=== PATIENT | male | born 1960 | race Caucasian/White ===

== ENCOUNTER 2017-10-08 08:55 | Observation (INO) | payer OTHER ==
[~2017-10-08] VITALS: Ht 193 cm; Wt 135.4 kg
[2017-10-08 09:34] LABS: BASOPHIL (%) 0.2 % (0-1); EOSINOPHIL (%) 0.1 % (0-5); HEMATOCRIT 46.9 % (38.0-50.0); HEMOGLOBIN 16.2 G/DL (12.5-16.6); IMMATURE GRANULOCYTE (%) 0.3 % (0.0-0.7); LYMPHOCYTE COUNT 1.6 K/uL (1.0-2.8); MCH 29.3 PG (29.0-34.0); MCHC 34.5 G/DL (30.0-36.0); MCV 84.8 FL (86-99); MONOCYTE (%) 5.5 % (3-12); MONOCYTE COUNT 0.6 K/uL (0-0.8); NEUTROPHIL (%) 78.9 % (45-76); NEUTROPHIL COUNT 8.4 K/uL (1.8-6.4); PLATELET COUNT 267 K/uL (156-360); RBC DIS.WIDTH-SD 36.8 % (39-53); RED BLOOD COUNT 5.53 M/uL (4.00-5.50); WHITE BLOOD COUNT 10.6 K/uL (4.1-10.2)
[2017-10-08 09:42] LABS: CHLORIDE 104 mEq/L (99-109); POTASSIUM 4.1 mEq/L (3.7-5.4); SODIUM 136 mEq/L (136-147)
[2017-10-08 09:44] LABS: GLUCOSE 135 mg/dL (70-99)
[2017-10-08 09:45] LABS: TOTAL PROTEIN 6.9 g/dL (6.4-8.3)
[2017-10-08 09:46] LABS: TOTAL BILIRUBIN 0.7 mg/dL (0.0-1.0)
[2017-10-08 09:48] LABS: ALKALINE PHOSPHATASE 54 IU/L (3-129); GFR ESTIMATE (CALCULATED) > 59 mL/min/ (58.99-99999)
[2017-10-08 09:49] LABS: UREA NITROGEN (BUN) 15 mg/dL (9-23)
[2017-10-08 09:50] LABS: AST (GOT) 15 IU/L (2-34)
[2017-10-08 09:51] LABS: ALT (GPT) 23 IU/L (3-49)
[2017-10-08 09:54] LABS: TROP-I INTERPRETATION NEGATIVE; TROPONIN-I < 0.01 ng/mL (0.0-0.30)
[2017-10-08] MEDS ORDERED: KRILL OIL500 MG PO (10:44)
[2017-10-08] MEDS ORDERED: NIACIN500 M4 PO (10:44)
[2017-10-08] MEDS ORDERED: OMEPRAZOLE40 M1 PO (10:44)
[2017-10-08] MEDS ORDERED: ADVIL COLD &1 TABLET PO (10:45)
[2017-10-08] MEDS ORDERED: FLONASE16 G1 BOTH NARES (10:45)
[2017-10-08 12:38] VITALS: BP 132/72
[2017-10-08 16:07] LABS: TROP-I INTERPRETATION NEGATIVE; TROPONIN-I 0.02 ng/mL (0.0-0.30)
[2017-10-08 20:02] VITALS: BP 122/57
[2017-10-08 22:03] LABS: TROP-I INTERPRETATION NEGATIVE; TROPONIN-I 0.01 ng/mL (0.0-0.30)
[2017-10-08 23:34] VITALS: BP 116/55
[2017-10-09 03:41] VITALS: BP 109/58
[2017-10-09 07:45] VITALS: BP 114/60
[2017-10-09 09:21] LABS: HDL CHOLESTEROL 49 MG/DL (Desirable>=40); LDL CHOLESTEROL 115 mg/dL (Desirable<100); NON-HDL CHOLESTEROL 131 mg/dL (Desirable<160); TOTAL CHOLESTEROL 180 mg/dL (Desirable<200); TRIGLYCERIDES 79 MG/DL (Normal: <150)
[2017-10-09] MEDS ORDERED: AMOX TR-K CLV1 EAC4 PO (10:53)
[2017-10-09 10:56] LABS: HEMOGLOBIN A1c (GLYCOHEMOGLOB) 5.7 % (Below 5.7)
[2017-10-09 11:29] VITALS: BP 119/68
[2017-10-09 15:28] VITALS: BP 125/80
[2017-10-09 19:45] VITALS: BP 138/85
[2017-10-10 00:30] VITALS: BP 134/63
[2017-10-10 04:54] VITALS: BP 133/71
[2017-10-10 07:20] VITALS: BP 130/78
[2017-10-10 11:35] VITALS: BP 133/76
[2017-10-10 16:25] VITALS: BP 120/60
[2017-10-10] MEDS ORDERED: AMOX TR-K CLV1 EAC4 PO (17:36)
[2017-10-10] MEDS ORDERED: ASPIR-LOW81 MG PO (17:37)
[2017-10-10] MEDS ORDERED: NITROSTAT0.4 MG SL (17:37)
[2017-10-10] MEDS ORDERED: ATORVASTATIN CA40 MG PO (17:38)
== END 2017-10-10 18:20 | disposition home or self-care (01) ==
LOC: EME 08:55 → EDOF 10:49 → 4SOUTH 10:49 → ENRESERV 10:51 → 4SOUTH 12:20
PROVIDERS: Emergency Medicine; Hospitalist
DX: R07.9 Chest pain, unspecified (principal); R61 Generalized hyperhidrosis; R11.0 Nausea; R94.31 Abnormal electrocardiogram [ECG] [EKG]; E66.9 Obesity, unspecified; Z68.36 Body mass index [BMI] 36.0-36.9, adult; K21.9 Gastro-esophageal reflux disease without esophagitis; Z87.442 Personal history of urinary calculi; R20.0 Anesthesia of skin; J01.90 Acute sinusitis, unspecified; D72.829 Elevated white blood cell count, unspecified; R51 Headache; Z82.49 Family history of ischemic heart disease and other diseases of the circulatory system
CPT/HCPCS: 71045; 78452; 80053; 80061; 83036; 84484; 85025; 93005; 93017; 99281; 99285; A9500; G0378; J1644